=== PATIENT | female | born 1975 | race Caucasian/White ===

== ENCOUNTER 2018-04-06 06:45 | Day surgery (SDC) | payer OTHER ==
[~2018-04-06 06:45] MED LIST: AMITRIPTYLINE H10 MG PO; CLONAZEPAM1 MG PO; CYMBALTA60 MG PO; METROTEXATE PO; ULTRACET PO; VITAMIN D31000 UNI1 PO
== END 2018-04-06 12:15 | disposition home or self-care (01) ==
LOC: CIR.AMB 06:45
DX: M67.432 Ganglion, left wrist (principal)